=== PATIENT | male | born 1995 | race Two or more races ===

== ENCOUNTER 2021-10-06 22:57 | Emergency (ER) | payer BC ==
[~2021-10-06] VITALS: Ht 170.2 cm; Wt 90.7 kg
--- NOTE | 2021-10-06 23:06 | NUR ---
PT RICHY 89 FROM HOME FOR C/O SOB AND HIVES 15 MIN AFTER EATING TAKE OUT. PLACED IN BED 9 ON MONITOR AND PULSE OX. AWAITING ER MD FOR EVAL AND ORDERS.
[2021-10-06] MEDS ORDERED: FAMOTIDINE/PF INJ 20 MG/2 ML VIAL IV ONE (23:10)
[2021-10-06] MEDS ORDERED: methylPREDNISolone SOD SUCC 125 MG/2ML VIAL ONE (23:10)
[2021-10-06] MEDS ORDERED: diphenhydrAMINE HCL 50 MG CAPSULE ONE (23:10)
[2021-10-06] MEDS: diphenhydrAMINE HCL 25 MG CAPSULE PO ONE (23:16)
[2021-10-06] MEDS: FAMOTIDINE/PF INJ 20 MG/2 ML VIAL IV ONE (23:16)
[2021-10-06] MEDS: methylPREDNISolone SOD SUCC 125 MG/2ML VIAL IV ONE (23:17)
--- NOTE | 2021-10-07 00:54 | NUR ---
RESTING COMFORTABLY. VSS.
[2021-10-07] MEDS ORDERED: EPIN0.3P3 IJ (02:28)
[2021-10-07] MEDS ORDERED: PRED20TA PO (02:28)
--- NOTE | 2021-10-07 02:29 | NUR ---
Patient discharged to home in stable condition. Written and verbal after care instructions given. Patient verbalizes understanding of instruction and RX. Pt ambulated out of ED. VSS.
--- NOTE | 2021-10-07 02:29 | NUR ---
IV removed. Catheter intact and site benign. Pressure and 4x4 applied to site. No bleeding noted.
[2021-10-07 02:30] VITALS: BP 122/71
== END 2021-10-07 02:30 | disposition home or self-care (01) ==
LOC: ER 23:00
DX: T78.2XXA Anaphylactic shock, unspecified, initial encounter (principal); F32.9 Major depressive disorder, single episode, unspecified; Z98.890 Other specified postprocedural states; Z60.2 Problems related to living alone
CPT/HCPCS: 96374; 96375; 99284; J2930; J3490; Q0163